=== PATIENT | male | born 2000 | race Two or more races ===

== ENCOUNTER 2024-11-15 18:30 | Emergency (ER) | payer OTHER ==
[~2024-11-15] VITALS: Ht 172.7 cm; Wt 73.0 kg
[2024-11-15 18:37] VITALS: TEMP 37; O2SAT 99
[2024-11-15] MEDS: ACETAMINOPHEN 500MG TABLET PO ONE (19:19)
[2024-11-15] MEDS: TETANUS, DIPHTHERIA, PERTUSSIS VAC/PF 0.5ML (>10YR OLD) IM ONE (19:20)
[2024-11-15] MEDS: LIDOCAINE HCL/EPINEPHRINE 1%-EPI 1:100,000 20ML VIAL INFIL ONE (19:21)
[2024-11-15 20:58] VITALS: BP 105/71; PULSE 68; RESP 14; O2SAT 100
== END 2024-11-15 21:06 | disposition home or self-care (01) ==
LOC: ER 18:30
DX: S01.01XA Laceration without foreign body of scalp, initial encounter (principal); V89.2XXA Person injured in unspecified motor-vehicle accident, traffic, initial encounter; Y93.89 Activity, other specified; Y92.410 Unspecified street and highway as the place of occurrence of the external cause; Y99.8 Other external cause status
CPT/HCPCS: 90715; 12001; 90471; 99283; J2004; Z7610 ×2